=== PATIENT | female | born 1955 | race Caucasian/White ===

== ENCOUNTER → 2017-03-06 | Day surgery (SDC) | payer OTHER ==
--- NOTE | 2017-03-05 15:29 | TH ---
cc: KORI COX M.D. DATE: DATE OF : 1955 PROCEDURE TO BE PERFORMED Upper blepharoplasty with a cervicofacial rhytidectomy. HISTORY OF PRESENT ILLNESS This is a pleasant otherwise healthy 60-year-old female who wishes a rejuvenating procedure. She did have a rejuvenating procedure about 10-12 years ago. PAST MEDICAL HISTORY Otherwise is unremarkable. HABITS Benign. REVIEW OF SYSTEMS Otherwise noncontributory. PHYSICAL EXAMINATION GENERAL APPEARANCE: The patient is a well-developed female in no acute distress. Body habitus is within normal limits. There appear to be no deformities. Appears to have attention to grooming. HEENT: Conjunctiva is within normal anatomical limits. The pupils are reactive to light and accommodation, size and symmetry. There is no evidence of exudate, hemorrhage, or vessel change. The external inspection of the ears and nose fails to demonstrate any lesions or masses. Nasal mucosa, septum, and turbinates appear to be well-hydrated as well as the lips and gums. No evidence of masses in the hypopharynx or submental area. CHEST: The patient shows no evidence of intercostal retractions. LUNGS: Clear to auscultation without any abnormal sounds or rubs. CARDIOVASCULAR: The patient has a normal heart rate and rhythm. There is no evidence of noted carotid bruits. Femoral pulses and pedal pulses in the extremities are also within normal limits. ABDOMEN: Soft with no evidence of masses or tenderness. Unable to palpate the liver or spleen. No evidence of hernia. MUSCULOSKELETAL: Appears to be reasonable range of motion of the head, neck, spine, ribs, pelvis, right upper extremity, left upper extremity, right lower extremity, and left lower extremity. The muscle strength and tone appears to be equal and within accepted limits. SKIN: There are no rashes, lesions, or ulcers on the trunk, back or extremities. NEUROLOGICAL: Examination is grossly normal. PSYCHIATRIC: The patient appears to have good orientation of time, place, and person. Does not appear to have any mood affects of depression, anxiety, or agitation. PLAN Upper blepharoplasty with cervicofacial rhytidectomy, possible submental incision utilizing the same pre and postauricular incisions as well. Will proceed accordingly. MD ANNELISE Rivera /3:08 PM /3:19 PM
[~2017-03-06] MED LIST: ACETAMINOPHEN 1000 MG/100 ML 100 ML IV ONE; BALANCED SALT SOLN OPHT IRRIG 15 ML BTL ONE; BUPIVACAINE/EPINEPHRINE 0.25% 50 ML VIAL ONE; LACTATED RINGER'S 1000 ML INJ 1,000 ML ONE; LIDOCAINE 2%/EPINEPHrine PF 1:200,000 20ML SDV ONE; MIDAZOLAM HCL 2 MG/2 ML VIAL ONE; NEOMYCIN/POLYMYXIN/BACITRACIN OINT 15 GM TUBE ONE; NEOMYCIN/POLYMYXIN/HYDROCORT OTIC SUSP 10 ML BTL ONE; ONDANSETRON HCL 4 MG/2 ML VIAL IV PUSH ONE; PROPOFOL 200 MG/20 ML AMP IV ONE; SODIUM CHLORIDE 0.9% 20 ML VIAL ONE; VANCOMYCIN 500 MG VIAL ONE
--- NOTE | 2017-03-06 10:59 | TN ---
cc: FEDERICO HERRERA M.D. DATE OF SURGERY 03/06/2017 PREOPERATIVE DIAGNOSIS Upper blepharochalasis the facial aging. POSTOPERATIVE DIAGNOSIS Upper blepharochalasis the facial aging. PROCEDURE Upper blepharoplasty and cervicofacial rhytidectomy/ SURGEON Federico Herrera MD [facility] ANESTHESIA LMA general plus a total of 200 cc of diluted 2% lidocaine with epinephrine in 250 cc of saline COMPLICATIONS None DRAINS None PROCEDURE She was properly consented, marked, appropriately anesthetized, the skin sterilized with Microcyn and sterile draping applied and physician markings were done in the holding area. Once the area was properly prepped and draped in the usual fashion, attention was directed to the incisions which were properly injected with 2% lidocaine with epinephrine. The excess of skin of the upper eyelid was properly removed respecting the orbicularis oculi muscle. Finding that there was very minimal to no fat to remove, the wounds were closed in multiple 6-0 Monocryl suture layers in interrupted fashion and a subcuticular 6-0 Prolene suture. The sutures were properly dressed with Steri-Strips. Attention was directed to the submental area where through a 2-1/2 to 3 cm incision, the dissection was carried out down to the platysma and thereafter, finding a significant decussation. A small amount of retro-platysma fat was removed surgically and the plication was carried out utilizing multiple layers of running 4-0 Mersilene suture. A small myotomy was done in order to accentuate the banding at the base of the neck. Through previous cervicofacial rhytidectomy incisions, I released the cervicofacial flap. I plicate the SMAS with a 4-0 Mersilene suture in a continue running fashion through vertically. There, a lateral platysmaplasty was carried out as well. I proceeded to perform a minimal excess skin removal and I put tissue glue and the wounds were closed utilizing 3-0 Monocryl suture in the postauricular area and surgical venkata in the hair bearing as skin and a 5-0 Monocryl suture and 5-0 fast-absorbing gut at the preauricular area. The submental incision was closed with 5-0 Monocryl suture in the dermis and subcu. Overall, absorbent compression dressings were applied. The patient tolerated the procedure well. She was awakened and extubated in the operating room. Good viability of tissue was noted at the end of the case. The patient was awakened and extubated in the operating room and transferred back to the postanesthesia care unit in stable condition. No complications appreciated. The patient tolerated the procedure fairly well. MD AVA Rivera/LIVIER /10:18 AM /10:40 AM
== END | disposition home or self-care (01) ==
LOC: ESDC 06:13
PROVIDERS: ATTEND Plastic Surgery
DX: Z41.1 Encounter for cosmetic surgery (principal)
CPT/HCPCS: 00103; 00300; 15822; 15828; J0131; J2250; J2405; J3010; J3370; J7120